=== PATIENT | female | born 1970 | race Caucasian/White ===

== ENCOUNTER 2022-12-08 13:34 | Emergency (ER) | payer SELFPAY ==
[~2022-12-08] VITALS: Ht 152.4 cm; Wt 47.7 kg
[~2022-12-08 13:34] MED LIST: ESCI10TA45 PO; [UNRECOGNIZED DRUG - CODE] TP
[2022-12-08 14:17] VITALS: BP 110/79
== END 2022-12-08 14:19 | disposition home or self-care (01) ==
LOC: ER 13:35
DX: R45.1 Restlessness and agitation (principal); K21.9 Gastro-esophageal reflux disease without esophagitis; F17.200 Nicotine dependence, unspecified, uncomplicated; Z90.49 Acquired absence of other specified parts of digestive tract; Z98.890 Other specified postprocedural states; Z98.51 Tubal ligation status; Z56.0 Unemployment, unspecified
CPT/HCPCS: 99283